=== PATIENT | male | born 1975 | race Two or more races ===

== ENCOUNTER 2022-03-07 19:12 | Emergency (ER) | payer SELFPAY ==
[2022-03-07] MEDS ORDERED: CLINDAMYCIN HC300 MG PO (21:13)
[2022-03-07] MEDS ORDERED: IBUPROFEN600 MG PO (21:13)
== END 2022-03-07 21:19 | disposition home or self-care (01) ==
LOC: ER1 19:12
DX: L72.9 Follicular cyst of the skin and subcutaneous tissue, unspecified (principal); E11.9 Type 2 diabetes mellitus without complications; I10 Essential (primary) hypertension
CPT/HCPCS: 10060; 87070; 87205; 99283

== ENCOUNTER 2022-04-24 18:42 | Emergency (ER) | payer OTHER ==
[~2022-04-24 18:42] MED LIST: CLINDAMYCIN HC300 MG PO; IBUPROFEN600 MG PO
[2022-04-24 20:17] LABS: HEMOGLOBIN 14.7 gm/dl (14.0-17.5); RED BLOOD COUNT 4.5 M/UL (4.20-5.50); WHITE BLOOD COUNT 11.4 K/UL (4.5-11.0)
[2022-04-24 20:44] LABS: BUN/CREATININE RATIO 23 (0-10)
[2022-04-24] MEDS ORDERED: LOTRIMIN CREAM45 GM TOP (23:58)
[2022-04-24] MEDS ORDERED: CEFUROXIME500 MG PO (23:58)
[2022-04-24] MEDS ORDERED: METFORMIN HCL500 MG PO (23:58)
[2022-04-26 22:09] LABS: CHLAMYDIA TRACHOMATIS, NAA Negative (Negative); NEISSERIA GONORRHOEAE, NAA Negative (Negative)
== END 2022-04-25 00:05 | disposition home or self-care (01) ==
LOC: ER1 18:42
PROVIDERS: Physician Assistant Medical
DX: B37.49 Other urogenital candidiasis (principal); E11.9 Type 2 diabetes mellitus without complications; I10 Essential (primary) hypertension; F17.200 Nicotine dependence, unspecified, uncomplicated
CPT/HCPCS: 80053; 81001; 85025; 87077; 87086; 99283